=== PATIENT | female | born 1960 | race African-American/Black ===

== ENCOUNTER 2016-11-29 15:46 | Emergency (ER) | payer MEDICAID ==
[~2016-11-29] VITALS: Ht 170.2 cm; Wt 93.0 kg
[2016-11-29] MEDS ORDERED: ROSU20TA PO (16:45)
[2016-11-29] MEDS ORDERED: IBUP100O15 PO (16:45)
[2016-11-29] MEDS ORDERED: CHOL500010 PO (16:45)
[2016-11-29] MEDS ORDERED: AMLO10TA80 PO (16:45)
[2016-11-29] MEDS ORDERED: METF850T2 PO (16:45)
[2016-11-29] MEDS ORDERED: SIMV40TA5 PO (16:45)
[2016-11-29] MEDS ORDERED: ALBU2.5V13 IH (16:45)
[2016-11-29] MEDS ORDERED: SODIUM CHLORIDE 0.9% 1,000 ML IV ONE (19:15)
[2016-11-29] MEDS ORDERED: INSULIN REGULAR (HUMULIN R) 300UNITS/3ML IV ONE ×3 (19:15→22:30)
[2016-11-29 19:28] LABS: BASOPHILS % 1.3 % (0.0-2.0); DIFFERENTIAL COMMENT 0; EOSINOPHILS % 4.7 % (0.0-5.0); HEMOGLOBIN. 15.3 g/dL (12.0-16.0); LYMPHOCYTES % 34.7 % (20.0-50.0); MEAN CORPUSCULAR HEMOGLOBIN 31.8 pg (28.0-32.0); MEAN CORPUSCULAR HGB CONC 34.8 g/dL (31.0-37.0); MEAN CORPUSCULAR VOLUME 91.4 fL (81.0-99.0); MEAN PLATELET VOLUME 9.6 fl (7.4-10.4); MONOCYTES % 8.9 % (2.0-8.0); NEUTROPHILS % 50.4 % (40.0-76.0); PLATELET 219 x1000/uL (130-400); RED BLOOD CELL COUNT 4.81 mill/uL (4.2-5.4); RED CELL DISTRIBUTION WIDTH 13.1 % (11.6-14.6); WHITE BLOOD COUNT 7.3 x1000/uL (4.5-11.0)
[2016-11-29 19:29] LABS: CHLORIDE 83 mEq/L (98-107)
[2016-11-29 19:33] LABS: CLARITY URINE CLEAR (CLEAR); COLOR URINE YELLOW (YELLOW); GLUCOSE URINE 3+ (NEGATIVE); KETONES URINE 1+ (NEGATIVE); LEUKOCYTE ESTERASE URINE NEGATIVE (NEGATIVE); NITRITE URINE NEGATIVE (NEGATIVE); OCCULT BLOOD URINE NEGATIVE (NEGATIVE); PH URINE 5.5 (4.5-8.0); PROTEIN URINE NEGATIVE (NEGATIVE); SPECIFIC GRAVITY URINE 1.036 (1.005-1.030); UROBILINOGEN URINE 0.2 E.U./dL (0.2-1.0)
[2016-11-29 19:37] LABS: ANION GAP 18; CALCIUM 10.3 mg/dL (8.5-10.1); CARBON DIOXIDE 29 mEq/L (21-32); INDEX HEMOLYSI 1 (1-3); INDEX ICTERIC 1 (1-4); INDEX LIPEMIC 1 (1-3); UREA NITROGEN BLOOD 15 mg/dL (7-21); eGFR > 60 mL/min (>60)
[2016-11-29 19:51] LABS: BACTERIA URINE TRACE; SQUAMOUS EPITHELIAL CELL URINE FEW /lpf (RARE/1+)
[2016-11-29 19:52] LABS: RBC URINE NONE SEEN /hpf (0-2); WBC URINE 0-2 /hpf (0-2)
[2016-11-30] MEDS ORDERED: INSULIN REGULAR (HUMULIN R) 300UNITS/3ML IV ONE (01:30)
[2016-11-30 02:00] VITALS: BP 145/85
== END 2016-11-30 04:45 | disposition home or self-care (01) ==
LOC: ER 17:17
DX: E11.65 Type 2 diabetes mellitus with hyperglycemia (principal); R53.1 Weakness; R07.9 Chest pain, unspecified; H53.8 Other visual disturbances; R06.02 Shortness of breath; J45.909 Unspecified asthma, uncomplicated; I10 Essential (primary) hypertension; R42 Dizziness and giddiness; M19.90 Unspecified osteoarthritis, unspecified site
CPT/HCPCS: 36415; 70450; 71010; 80048; 81001; 82962; 85025; 93005; 96361; 96374; 96376; 99291; J1815; J7030; Z7610

== ENCOUNTER 2020-06-08 22:35 | Emergency (ER) | payer MEDICAID ==
[~2020-06-08] VITALS: Ht 165.1 cm; Wt 90.0 kg
[~2020-06-08 22:35] MED LIST: ALBU2.5V13 IH; AMLO10TA80 PO; CHOL500010 PO; IBUP-516 PO; METF-415 PO; ROSU20TA2 PO; SIMV-46 PO
[2020-06-08] MEDS ORDERED: SODIUM CHLORIDE 0.9% 1,000 ML IV ONE (23:15)
[2020-06-08 23:31] LABS: BASOPHILS % 0.8 % (0.0-2.0); CHLORIDE 104 mEq/L (98-107); HEMATOCRIT. 37.9 % (36.0-48.0); HEMOGLOBIN. 12.9 g/dL (12.0-16.0); LYMPHOCYTES % 35.7 % (20.0-50.0); MEAN CORPUSCULAR HEMOGLOBIN 32.9 pg (28.0-32.0); MEAN CORPUSCULAR VOLUME 96.5 fL (81.0-99.0); MONOCYTES % 5.7 % (2.0-8.0); NEUTROPHILS % 52.8 % (40.0-76.0); PLATELET 265 x1000/uL (130-400); RED BLOOD CELL COUNT 3.92 mill/uL (4.2-5.4); RED CELL DISTRIBUTION WIDTH 14.3 % (11.6-14.6)
[2020-06-08 23:37] LABS: ETHANOL BLOOD 136 mg/dL
[2020-06-09] MEDS ORDERED: POTASSIUM CHLORIDE INJ 40 MEQ in DEXT 5% WATER 250 ML IV ONE (00:30)
[2020-06-09] MEDS ORDERED: POTASSIUM CHLORIDE 20MEQ TABLET SR PO ONE (00:30)
[2020-06-09 01:33] LABS: CLARITY URINE CLOUDY (CLEAR); COLOR URINE YELLOW (YELLOW); KETONES URINE NEGATIVE (NEGATIVE); LEUKOCYTE ESTERASE URINE 3+ (NEGATIVE); NITRITE URINE NEGATIVE (NEGATIVE); OCCULT BLOOD URINE NEGATIVE (NEGATIVE); PH URINE 5.5 (4.5-8.0); PROTEIN URINE NEGATIVE (NEGATIVE); SPECIFIC GRAVITY URINE 1.021 (1.005-1.030); UROBILINOGEN URINE 0.2 E.U./dL (0.2-1.0)
[2020-06-09 01:45] LABS: *AMPHETAMINES SCREEN URINE NEGATIVE (NEGATIVE); CANNABINOID URINE SCREEN NEGATIVE (NEGATIVE)
[2020-06-09 01:46] LABS: *BARBITURATES SCREEN URINE NEGATIVE (NEGATIVE); *BENZODIAZEPINES SCREEN URINE NEGATIVE (NEGATIVE); *COCAINE SCREEN URINE NEGATIVE (NEGATIVE); METHADONE URINE SCREEN NEGATIVE (NEGATIVE); OPIATES URINE SCREEN NEGATIVE (NEGATIVE); PHENCYCLIDINE URINE SCREEN NEGATIVE (NEGATIVE)
[2020-06-09 04:56] VITALS: BP 138/65
== END 2020-06-09 05:01 | disposition home or self-care (01) ==
LOC: ER 22:35
DX: T51.0X1A Toxic effect of ethanol, accidental (unintentional), initial encounter (principal); Y92.89 Other specified places as the place of occurrence of the external cause; E86.0 Dehydration; E87.6 Hypokalemia; I95.9 Hypotension, unspecified; J45.909 Unspecified asthma, uncomplicated; E11.9 Type 2 diabetes mellitus without complications; I10 Essential (primary) hypertension; Z79.899 Other long term (current) drug therapy
CPT/HCPCS: 36415; 71045; 80053; 80305; 80320; 81003; 85025; 93005; 96361; 96365; 99285; J3480; J7030; J7060; G0480

== ENCOUNTER 2025-07-12 09:05 | Inpatient (IN) | payer OTHER, MEDICAID, MEDICARE ==
[~2025-07-12] VITALS: Ht 170.2 cm; Wt 85.9 kg
[~2025-07-12 09:05] MED LIST changes: +AMLO-905 MT; +ASPI-1497 MT; +ATOR40TA70 PO; +DIPH25TA23 MT; +EZET10TA81 MT; +FAMO-135 PO; +FLAS1EAC2 TP; +HYDR25TA78 MT; -IBUP-516 PO; +INSLIS SUBCUT; +INSU100I28 SQ; +IPRA3AMP9 NEB; +LANC1COM2 MC; +LORA10TA7 PO; -METF-415 PO; +P20 PO
[2025-07-12 09:18] VITALS: O2SAT 97
[2025-07-12 10:32] LABS: BASOPHILS % 0.3 % (0.0-2.0); EOSINOPHILS % 0.0 % (0.0-5.0); HEMATOCRIT. 36.5 % (36.0-48.0); HEMOGLOBIN. 12.1 g/dL (12.0-16.0); LYMPHOCYTES % 8.3 % (20.0-50.0); MEAN PLATELET VOLUME 8.3 fl (7.4-10.4); MONOCYTES % 3.4 % (2.0-8.0); NEUTROPHILS % 88.0 % (40.0-76.0); PLATELET 295 x1000/uL (130-400); RED BLOOD CELL COUNT 3.83 mill/uL (4.2-5.4); RED CELL DISTRIBUTION WIDTH 14.6 % (11.6-14.6)
[2025-07-12 10:52] LABS: TROPONIN I HIGH SENSITIVITY 5 ng/L (3.0-34)
[2025-07-12 11:15] LABS: CREATININE 1.2 mg/dL (0.6-1.0); UREA NITROGEN BLOOD 16.0 mg/dL (9-23)
[2025-07-12 11:56] LABS: PROTEIN TOTAL 7.0 g/dL (6.0-8.3)
[2025-07-12 11:58] LABS: ASPARTATE AMINOTRANSFERASE 33 IU/L (<34); BILIRUBIN DIRECT 0.4 mg/dL (<=3.0); BILIRUBIN TOTAL 1.0 mg/dL (0.1-1.0)
[2025-07-12] MEDS ORDERED: KCL 10MEQ/50ML PREMIX 50 ML IV SCH (12:00)
[2025-07-12] MEDS ORDERED: SODIUM CHLORIDE 0.9% 1,000 ML IV ONE (12:00)
[2025-07-12] MEDS ORDERED: AZITHROMYCIN 500MG/250ML 250 ML IV SCH (13:15)
[2025-07-12] MEDS: SODIUM CHLORIDE 0.9% (SEPSIS BOLUS) IV ONE (13:45)
[2025-07-12] MEDS: CEFTRIAXONE 2GM/50ML 50 ML IV ONE (14:29)
[2025-07-12] MEDS: IOHEXOL-350 100 ML BOTTLE ONE (14:29)
[2025-07-12 15:10] VITALS: BP 120/47; PULSE 102; RESP 24; TEMP 36.7; O2SAT 97
[2025-07-12] MEDS ORDERED: AMLO10TA80 MT (16:04)
[2025-07-12] MEDS ORDERED: CHOL400D7 PO (16:04)
[2025-07-12] MEDS ORDERED: HYDR25TA78 MT (16:04)
[2025-07-12] MEDS ORDERED: IBUP-2030 MT (16:04)
[2025-07-12] MEDS ORDERED: METF-416 MT (16:04)
[2025-07-12] MEDS ORDERED: BUDE6.9H INH (16:04)
[2025-07-12] MEDS ORDERED: LINA5TAB MT (16:04)
[2025-07-12] MEDS ORDERED: PROM473S4 MT (16:04)
[2025-07-12] MEDS ORDERED: P50 MT (16:04)
[2025-07-12] MEDS ORDERED: ACETAMINOPHEN 325MG TABLET PO PRN (16:45)
[2025-07-12] MEDS ORDERED: HYDROCODONE/ACETAMINOPHEN 5/325MG TABLET PO PRN (16:45)
[2025-07-12] MEDS ORDERED: NALOXONE HCL 0.4MG/ML VIAL IV PRN (16:45)
[2025-07-12] MEDS ORDERED: ONDANSETRON HCL 4MG/2ML INJ IV PRN (16:45)
[2025-07-12] MEDS ORDERED: IPRATROPIUM/ALBUTEROL 0.5-3(2.5)MG/3ML NEB HHN PRN (16:45)
[2025-07-12 17:00] VITALS: BP 150/76; PULSE 109; RESP 20; TEMP 36.4; O2SAT 98
[2025-07-12 17:19] VITALS: BP 120/47; PULSE 102; RESP 24; TEMP 36.7; O2SAT 97
[2025-07-12] MEDS: ENOXAPARIN 40MG/0.4ML SYR SUBCUT SCH (17:51)
[2025-07-12 18:00] VITALS: BP 150/76; PULSE 109; RESP 20; TEMP 36.5848
[2025-07-12 20:00] VITALS: BP 106/51; PULSE 77; RESP 22; TEMP 36.4; O2SAT 98
[2025-07-12 23:02] LABS: INR 1.1
[2025-07-13] VITALS: BP 112/49; PULSE 105; RESP 22; TEMP 37.2; O2SAT 99
[2025-07-13 04:00] VITALS: BP 98/59; PULSE 103; RESP 21; TEMP 36.4; O2SAT 99
[2025-07-13 07:56] LABS: BASOPHILS % 0.5 % (0.0-2.0); EOSINOPHILS % 0.6 % (0.0-5.0); HEMATOCRIT. 32.2 % (36.0-48.0); HEMOGLOBIN. 11.0 g/dL (12.0-16.0); LYMPHOCYTES % 9.3 % (20.0-50.0); MEAN PLATELET VOLUME 8.5 fl (7.4-10.4); MONOCYTES % 3.3 % (2.0-8.0); NEUTROPHILS % 86.3 % (40.0-76.0); PLATELET 242 x1000/uL (130-400); RED BLOOD CELL COUNT 3.41 mill/uL (4.2-5.4); RED CELL DISTRIBUTION WIDTH 14.5 % (11.6-14.6)
[2025-07-13 07:57] LABS: CREATINE KINASE MB FRACTION 0.7 ng/mL (0.5-3.6); CREATININE 1.0 mg/dL (0.6-1.0); UREA NITROGEN BLOOD 12 mg/dL (9-23)
[2025-07-13 07:58] LABS: TROPONIN I HIGH SENSITIVITY 5 ng/L (3.0-34)
[2025-07-13 08:00] VITALS: BP 119/65; PULSE 99; RESP 16; TEMP 36.9; O2SAT 97
[2025-07-13] MEDS ORDERED: DEXTROSE 50% WATER 50ML SYRINGE IV PRN (09:45)
[2025-07-13] MEDS: KCL 20MEQ/100ML PREMIX 100 ML IV SCH (10:28)
[2025-07-13 12:00] VITALS: BP 116/56; PULSE 92; RESP 16; TEMP 36.3; O2SAT 97
[2025-07-13] MEDS ORDERED: BLOOD SUGAR DIAGNOSTIC STRIP TEST SCH (12:20)
[2025-07-13] MEDS: BLOOD SUGAR DIAGNOSTIC STRIP TEST SCH (12:49)
[2025-07-13] MEDS: INSULIN LISPRO 100 UNITS/ML SUBCUT SCH (12:55)
[2025-07-13] MEDS: METHYLPREDNISOLONE SOD SUCC 40MG/ML (ACT-O-VIAL) IV SCH (14:35)
[2025-07-13 14:47] LABS: BG BASE EXCESS -3.4 mmol/L (-2.0-3.0); BG CARBOXYHEMOGLOBIN 1.2 % (0.5-1.5); BG DEOXYHEMOGLOBIN 4.4 % (0.0-5.0); BG FLOW(L/min) 3.00 L/min; BG FRACTION INSPIRED OXYGEN 32; BG HCO3 ACT 19.7 mmol/L (21.0-28.0); BG METHEMOGLOBIN 0.0 % (0.5-1.5); BG OXYGEN SATURATION 95.5 % (94.0-98.0); BG OXYHEMOGLOBIN 94.4 % (94.0-98.0); BG PCO2 29.9 mmHg (32.0-45.0); BG PH 7.436 (7.350-7.450); BG PO2 71.5 mmHg (83.0-108.0); BG SAMPLE SITE RIGHT RADIAL; BG TOTAL HEMOGLOBIN 13.1 g/dL (12.0-16.0); BG VENT MODE NASAL CANNULA
[2025-07-13] MEDS: LEVOFLOXACIN 750MG PREMIX 150 ML IV SCH (15:33)
[2025-07-13 16:00] VITALS: BP 139/68; PULSE 101; PULSE 92; RESP 13; RESP 16; TEMP 36.3; O2SAT 94
[2025-07-13] MEDS: ASPIRIN 81MG TABLET PO SCH (16:00)
[2025-07-13 20:00] VITALS: BP 135/66; PULSE 84; RESP 20; TEMP 36.6; O2SAT 99
[2025-07-13 21:05] LABS: TRIGLYCERIDE 220.0 mg/dL (0-150)
[2025-07-13 21:06] LABS: LDL CHOLESTEROL 186.0 mg/dL (5-100)
[2025-07-13] MEDS: ATORVASTATIN CALCIUM 40MG TABLET PO SCH (23:30)
[2025-07-14] VITALS: BP 139/41; PULSE 69; RESP 19; TEMP 36.3; O2SAT 100
[2025-07-14 08:00] VITALS: BP 144/65; PULSE 73; RESP 18; TEMP 36.4; O2SAT 100
[2025-07-14 12:00] VITALS: BP 130/48; PULSE 73; RESP 18; TEMP 36.6; O2SAT 100
[2025-07-14 16:00] VITALS: BP 141/68; PULSE 63; RESP 18; TEMP 36.5; O2SAT 97
[2025-07-14 20:00] VITALS: BP 119/71; PULSE 76; RESP 18; TEMP 36.1; O2SAT 100
[2025-07-14 22:18] LABS: *AMPHETAMINES SCREEN URINE NEGATIVE (NEGATIVE); *BARBITURATES SCREEN URINE NEGATIVE (NEGATIVE); *BENZODIAZEPINES SCREEN URINE NEGATIVE (NEGATIVE); *COCAINE SCREEN URINE NEGATIVE (NEGATIVE); METHADONE URINE SCREEN NEGATIVE (NEGATIVE); OPIATES URINE SCREEN PRESUMPTIVE POSITIVE (NEGATIVE)
[2025-07-14 22:19] LABS: CANNABINOID URINE SCREEN NEGATIVE (NEGATIVE); ECSTASY MDMA SCREEN URINE NEGATIVE (NEGATIVE); PHENCYCLIDINE URINE SCREEN NEGATIVE (NEGATIVE)
[2025-07-15] VITALS: BP 134/62; PULSE 70; RESP 18; TEMP 36.4; O2SAT 100
[2025-07-15 04:00] VITALS: BP 121/64; PULSE 67; RESP 20; TEMP 36.3; O2SAT 96
[2025-07-15 07:01] LABS: CREATININE 0.8 mg/dL (0.6-1.0); UREA NITROGEN BLOOD 16 mg/dL (9-23)
[2025-07-15 07:03] LABS: BASOPHILS % 0.4 % (0.0-2.0); EOSINOPHILS % 0.0 % (0.0-5.0); HEMATOCRIT. 32.7 % (36.0-48.0); HEMOGLOBIN. 11.2 g/dL (12.0-16.0); LYMPHOCYTES % 7.3 % (20.0-50.0); MEAN PLATELET VOLUME 9.1 fl (7.4-10.4); MONOCYTES % 3.5 % (2.0-8.0); NEUTROPHILS % 88.8 % (40.0-76.0); PLATELET 274 x1000/uL (130-400); RED BLOOD CELL COUNT 3.53 mill/uL (4.2-5.4); RED CELL DISTRIBUTION WIDTH 14.4 % (11.6-14.6)
[2025-07-15 08:00] VITALS: BP 151/61; PULSE 72; RESP 16; TEMP 36.3; O2SAT 97
[2025-07-15] MEDS: POTASSIUM CHLORIDE 20MEQ TABLET SR PO SCH (10:52)
[2025-07-15 12:00] VITALS: BP 157/83; PULSE 56; RESP 18; TEMP 36.4; O2SAT 99
[2025-07-15] MEDS: INSULIN LISPRO 100 UNITS/ML SUBCUT SCH (14:02)
[2025-07-15] MEDS ORDERED: FLUCONAZOLE 200 MG/100ML BAG 100 MG in CONTAINER,EMPTY 0 BAG IV SCH (14:15)
[2025-07-15] MEDS ORDERED: CEFEPIME 1GM IN DEXT 5% 50ML IV SCH (14:30)
[2025-07-15 14:32] LABS: BG BASE EXCESS -6.6 mmol/L (-2.0-3.0); BG CARBOXYHEMOGLOBIN 0.5 % (0.5-1.5); BG DEOXYHEMOGLOBIN 2.8 % (0.0-5.0); BG HCO3 ACT 16.1 mmol/L (21.0-28.0); BG METHEMOGLOBIN 0.0 % (0.5-1.5); BG OXYGEN SATURATION 97.2 % (94.0-98.0); BG OXYHEMOGLOBIN 96.7 % (94.0-98.0); BG PCO2 24.9 mmHg (32.0-45.0); BG PH 7.428 (7.350-7.450); BG PO2 89.1 mmHg (83.0-108.0); BG TOTAL HEMOGLOBIN 12.3 g/dL (12.0-16.0)
[2025-07-15 14:33] LABS: BG FRACTION INSPIRED OXYGEN 21; BG SAMPLE SITE LEFT RADIAL; BG VENT MODE ROOM AIR
[2025-07-15] MEDS: METHYLPREDNISOLONE SOD SUCC 40MG/ML (ACT-O-VIAL) IV SCH (14:34)
[2025-07-15] MEDS ORDERED: FLUCONAZOLE 200 MG/100ML BAG 100 ML IV SCH (15:30)
[2025-07-15 15:56] LABS: INFLUENZA TYPE A Presumptive Negative (Pres. Neg.)
[2025-07-15 15:57] LABS: INFLUENZA TYPE B Presumptive Negative (Pres. Neg.)
[2025-07-15 17:32] VITALS: BP 137/54; PULSE 59; RESP 15; TEMP 36.4; O2SAT 96
[2025-07-15] MEDS: CEFEPIME 2GM/100ML 100 ML IV SCH (17:43)
[2025-07-15 20:00] VITALS: BP 155/56; PULSE 64; RESP 19; TEMP 36.2; O2SAT 98
[2025-07-16] VITALS: BP 135/55; PULSE 61; RESP 18; TEMP 36.3; O2SAT 100
[2025-07-16 04:00] VITALS: BP 150/56; PULSE 60; RESP 19; TEMP 36.3; O2SAT 98
[2025-07-16 08:00] VITALS: BP 106/52; PULSE 57; RESP 18; TEMP 35.6; O2SAT 99
[2025-07-16 08:12] LABS: HEMATOCRIT. 35.9 % (36.0-48.0); HEMOGLOBIN. 11.9 g/dL (12.0-16.0); MEAN PLATELET VOLUME 8.7 fl (7.4-10.4); PLATELET 336 x1000/uL (130-400); RED BLOOD CELL COUNT 3.83 mill/uL (4.2-5.4); RED CELL DISTRIBUTION WIDTH 14.8 % (11.6-14.6)
[2025-07-16 08:32] LABS: CREATININE 0.9 mg/dL (0.6-1.0); UREA NITROGEN BLOOD 16 mg/dL (9-23)
[2025-07-16 08:33] LABS: PROTEIN TOTAL 6.3 g/dL (6.0-8.3)
[2025-07-16 08:34] LABS: ASPARTATE AMINOTRANSFERASE 40 IU/L (<34); BILIRUBIN TOTAL 0.3 mg/dL (0.1-1.0)
[2025-07-16] MEDS ORDERED: HYDRALAZINE 20MG/ML VIAL IV PRN (11:15)
[2025-07-16 12:00] VITALS: BP 145/62; PULSE 58; RESP 17; TEMP 35.6; O2SAT 97
[2025-07-16] MEDS: GUAIFENESIN-DM 200MG-20MG/10ML UDC PO PRN (13:59)
[2025-07-16 16:00] VITALS: BP 157/64; RESP 18; TEMP 36.2; O2SAT 98
[2025-07-16] MEDS: BENZONATATE 100MG CAPSULE PO PRN (17:59)
[2025-07-16 19:40] LABS: LYMPHOCYTES % MANUAL 11.0 % (20.0-60.0); MONOCYTES % MANUAL 9.0 % (2.0-8.0); NEUTROPHILS % MANUAL 80.0 % (45.0-75.0); PLATELET ESTIMATE NORMAL
[2025-07-16 20:00] VITALS: BP 146/59; PULSE 53; RESP 19; TEMP 36.2; O2SAT 98
[2025-07-17] VITALS: BP 142/49; PULSE 52; RESP 20; TEMP 36.3; O2SAT 100
[2025-07-17 04:00] VITALS: BP 153/57; PULSE 54; RESP 19; TEMP 36.5; O2SAT 100
[2025-07-17 07:41] LABS: HEMATOCRIT. 36.5 % (36.0-48.0); HEMOGLOBIN. 12.4 g/dL (12.0-16.0); MEAN PLATELET VOLUME 8.7 fl (7.4-10.4); PLATELET 332 x1000/uL (130-400); RED BLOOD CELL COUNT 3.91 mill/uL (4.2-5.4); RED CELL DISTRIBUTION WIDTH 14.9 % (11.6-14.6)
[2025-07-17 07:54] LABS: CREATININE 0.9 mg/dL (0.6-1.0)
[2025-07-17 07:55] LABS: UREA NITROGEN BLOOD 14 mg/dL (9-23)
[2025-07-17 08:00] VITALS: BP 146/62; PULSE 53; RESP 17; TEMP 36.2; O2SAT 97
[2025-07-17] MEDS: HYDRALAZINE HCL 25MG TABLET PO SCH (09:04)
[2025-07-17 12:00] VITALS: BP 125/54; PULSE 53; RESP 18; TEMP 36.1; O2SAT 96
[2025-07-17 13:59] VITALS: BP 141/57; PULSE 67; RESP 18; TEMP 97
[2025-07-17] MEDS: METHYLPREDNISOLONE SOD SUCC 40MG/ML (ACT-O-VIAL) IV SCH (14:16)
[2025-07-17 16:00] VITALS: BP_SYST 131; BP_SYST 164; BP_DIAS 50; BP_DIAS 58; PULSE 68; RESP 17; TEMP 36.1; O2SAT 97
[2025-07-17] MEDS ORDERED: BENZ100C86 PO (18:24)
[2025-07-17] MEDS ORDERED: HYDR25TA78 PO (18:24)
[2025-07-17] MEDS ORDERED: LEVO750T68 PO (18:24)
[2025-07-17] MEDS ORDERED: P20 MT (18:24)
[2025-07-17] MEDS ORDERED: BUDE6.9H INH (18:41)
[2025-07-17] MEDS ORDERED: P20 PO (18:41)
[2025-07-17] MEDS ORDERED: HYDR25TA78 MT (18:41)
[2025-07-18 14:14] LABS: LYMPHOCYTES % MANUAL 16.0 % (20.0-60.0); MONOCYTES % MANUAL 5.0 % (2.0-8.0); NEUTROPHILS % MANUAL 79.0 % (45.0-75.0); PLATELET ESTIMATE NORMAL
== END 2025-07-17 20:05 | disposition home or self-care (01) | DRG 871 ==
LOC: ER 09:05 → MICUSO 13:12 → EDBEDREQ 13:19 → EDBEDREQTM 13:19 → EDBEDREQSVC 13:19 → 6WST 19:21
PROVIDERS: ADMIT Internal Medicine; ATTEND Internal Medicine
DX: A41.59 Other Gram-negative sepsis (principal); J18.9 Pneumonia, unspecified organism; J96.01 Acute respiratory failure with hypoxia; I25.110 Atherosclerotic heart disease of native coronary artery with unstable angina pectoris; J44.0 Chronic obstructive pulmonary disease with (acute) lower respiratory infection; E11.9 Type 2 diabetes mellitus without complications; I10 Essential (primary) hypertension; J44.1 Chronic obstructive pulmonary disease with (acute) exacerbation; J45.901 Unspecified asthma with (acute) exacerbation; R55 Syncope and collapse; Z96.659 Presence of unspecified artificial knee joint; M50.322 Other cervical disc degeneration at C5-C6 level; E87.6 Hypokalemia; E78.00 Pure hypercholesterolemia, unspecified; F17.210 Nicotine dependence, cigarettes, uncomplicated; Z79.4 Long term (current) use of insulin; Z79.51 Long term (current) use of inhaled steroids; Z79.84 Long term (current) use of oral hypoglycemic drugs; Z79.899 Other long term (current) drug therapy; Z88.0 Allergy status to penicillin
CPT/HCPCS: 36415; 36600; 71045; 71275; 74174; 80048; 80053; 80061; 80076; 80305; 80320; 82375; 82550; 82553; 82805; 82962; 83036; 83605; 83880; 84132; 84145; 84484; 85025; 85379; 87070; 87077; 87106; 87804; 93005; 93306; 97162; 97530; 99285; A4606; J0456; J0692; J0696; J1450; J1650; J1815; J1956; J2919; J3480; J7030; Q9967; G0480